=== PATIENT | female | born 1960 | race Caucasian/White ===

== ENCOUNTER 2018-10-01 22:37 | Inpatient (IN) ==
[2018-10-01 23:29] LABS: Basophils # 0.1 K/mcL (0.0-0.2); Basophils % 0.3 %; Eosinophils # 0.1 K/mcL (0.0-0.6); Eosinophils % 0.5 %; Hematocrit 40.4 % (35.3-44.9); Hemoglobin 13.6 g/dL (11.5-15.4); Immature Granulocytes % 0.5 % (0-4); Lymphocytes # 2.1 K/mcL (0.6-4.6); Lymphocytes % 12.2 %; Mean Corpuscular HGB Conc 33.7 g/dL (31.6-35.5); Mean Corpuscular Hemoglobin 31.9 pg (28.0-33.3); Mean Corpuscular Volume 94.6 fL (83.0-100.0); Mean Platelet Volume 9.7 fL (9.4-12.4); Monocytes # 1.5 K/mcL (0.0-1.3); Monocytes % 8.4 %; Neutrophils # 13.7 K/mcL (1.6-8.9); Platelet Count 263 K/mcL (140-400); Red Blood Count 4.27 M/mcL (3.82-4.97); Red Cell Distribution Width 13.2 % (11.5-14.5); Segmented Neutrophils % 78.1 %
[2018-10-01 23:47] LABS: Albumin 3.9 g/dL (3.5-5.7); Albumin/Globulin Ratio 1.6 (1.1-2.2); BUN/Creatinine Ratio 25 (6-26); Bilirubin,Direct 0.1 mg/dL (0.0-0.2); Bilirubin,Indirect 0.3 mg/dL (0.0-1.2); Bilirubin,Total 0.4 mg/dL (0.3-1.0); Blood Urea Nitrogen 15 mg/dL (6-20); Calcium 9.8 mg/dL (8.6-10.3); Carbon Dioxide 31 mEq/L (23-29); Chloride 106 mEq/L (98-107); Globulin 2.5 g/dL (2.4-3.5); Glucose 124 mg/dL (70-105); Osmolality,Calculated 304 (280-300); Potassium 3.8 mEq/L (3.5-5.1); Sodium 146 mEq/L (136-145); Total Protein 6.4 g/dL (6.4-8.9); eGFR For Non-African Americans > 60 (> 60)
[2018-10-01] MEDS ORDERED: Ondansetron 4 MG/2 ML VIAL IVP ONE (23:53)
[2018-10-01] MEDS ORDERED: Ketorolac 15 MG/ML VIAL IVP ONE (23:53)
[2018-10-01 23:55] LABS: Bilirubin,Urine Negative (Negative); Blood,Urine Negative (Negative); Clarity,Urine Turbid (Clear); Color,Urine Yellow (Yellow); Glucose,Urine (UA) Normal (Normal); Ketones,Urine Negative (Negative); Leukocyte Esterase,Urine Negative (Negative); Nitrite,Urine Negative (Negative); PH,Urine 7.5 pH Units (5.0-8.0); Protein,Urine Negative (Neg-Trace); Specific Gravity,Urine 1.008 (1.010-1.025); Urobilinogen,Urine Normal (Normal)
[2018-10-01 23:57] LABS: Bacteria,Urine None Seen per hpf (None-Few); Hyaline Casts,Urine None Seen per lpf (None-Few); Squamous Epithelial Cell,Urine Many per lpf (None-Few); WBC,Urine 0-3 per hpf (0-3)
--- NOTE | 2018-10-02 01:26 | Emergency Department Note ---
Disposition Clinical Impression: Appendicitis Qualifiers: Appendicitis type: acute appendicitis Acute appendicitis type: unspecified acute appendicitis type Qualified Code(s): K35.80 - Unspecified acute appendicitis Disposition: Admitted As Inpatient Condition: Good General Adult HPI - General Chief complaint: ED Nausea/Vomiting/Diarrhea Stated complaint: "Abd Pain/V/N" Time Seen by Provider: 10/01/18 23:46 Source: patient Mode of arrival: private vehicle Limitations: no limitations Nursing Notes Reviewed: Yes Vital Signs Reviewed: Yes - History of Present Illness HPI Narrative: 58-year-old female with the only medical history of a cholecystectomy, hypothyroidism, and a T&A as a child presents emergency department for evaluatio n of right-sided abdominal pain. She states today she flew from [place] and to [place], started having significant epigastric right upper quadrant and normal pain she took some Tums, systolic heart burn really help her, she states she went to work all day at the end of the day they want to go to dinner and all of a sudden she just started feeling bad she states she declined entered because she just felt all of a sudden very tired. She states she went to her hotel room and she laid down where she just started projectile vomiting multiple times, she denies hematemesis, much easier. She states it wishes more what little bit of food she had in her as well as viral. She is unsure if she has had a fevers but she has had "sweats and chills". She states she is just coming off antibiotics for si nusitis, last dose was Saturday as well as she was on prednisone with her last dose Saturday. She denies any other complaints. Onset (ago): hour(s) Location: abdomen Radiation: non-radiation Pain Severity: moderate, severe Pain Scale: 6 Quality: sharp Consistency: constant, Worsening Improves with: nothing Worsens with: nothing Associated symptoms: Reports: loss of appetite, malaise, nausea/vomiting. Denies: confusion, chest pain, cough, diaphoresis, fever/chills, headaches, rash, seizure, shortness of breath, syncope, weakness Treatments Prior to Arrival: none - Related Data Home Medications Medication Instructions Recorded Confirmed Levothyroxine [Synthroid] 125 mcg PO 0630 10/02/18 10/02/18 Allergies Allergy/AdvReac Type Severity Reaction Status Date / Time No Known Allergies Allergy Verified 10/01/18 22:40 All systems ED: reviewed and negative except as stated. Review of Systems: As Per HPI Past Medical History - Past Medical History Attestation: Yes The following information was validated with the patient. Source: patient Medical history: Reports: thyroid disease Psychiatric history: Reports: no psych history - Social History Smoking Status: Current every day smoker Smokeless Tobacco Status: No Alcohol use: Reports: occasionally Drug use: Reports: none Physical Exam - General Limitations: no limitations General appearance: alert, in no apparent distress - Head Head exam: atraumatic, normocephalic, normal inspection - Eye Eye exam: Present: normal appearance - ENT ENT exam: mucous membranes moist - Neck Neck exam: Present: normal inspection, full ROM, trachea midline - Chest Chest inspection: Present: normal inspection, symmetric chest wall rise - Respiratory Respiratory exam: Present: normal lung sounds bilaterally - Cardiovascular Cardiovascular exam: Present: regular rate, normal rhythm, normal heart sounds - Abdominal Exam Abdominal exam: Present: soft, tenderness, guarding, normal bowel sounds, Rovsing's sign. Absent: distention, rebound, rigidity, diminished bowel sounds, organomegaly, Todd's sign Abdominal tenderness: Present: RLQ, severe - Extremities Exam Extremities exam: Present: normal inspection, full ROM. Absent: tenderness, pedal edema - Back Exam Back exam: Present: normal inspection, full ROM. Absent: tenderness - Neurological Exam Neurological exam: Present: alert, oriented X3 - Psychiatric Psychiatric exam: Present: normal affect, normal mood - Skin Skin exam: Present: warm, dry, intact, normal color Course Course Narrative: Nontoxic appearing female moderate amount of stress. She does have her hands guarding her right lower quadrant. The patient discussed right upper quadrant pain, that she is holding her right lower quadrant during examination but she does state she feels like she has a heartburn. Patient is afebrile, normotensive, non-tachycardic upon arrival. Physical exam does reveal positive Rovsing sign, she is right lower quadrant tenderness, it is periumbilical as well, immediate concern for appendicitis versus a nonsurgical abdomen. Labs returned with an elevated white count 17.5 however patient has been on steroids, metabolic panel is within normal limits, a UA without evidence of infection. We did get a CT of the abdomen and pelvis, CT did confirm acute appendicitis with stranding. Physical examination and CT correlate clinically. I did call and speak with the surgeon Dr. Peralta who did come to the emergency department to evaluate patient as he was in the building at the time. We will initiate antibiotics and fluids, plan admission for appendicitis under the care of Dr. Peralta. Results discussed with patient by myself prior to Dr. Peralta examination, verbalized understanding. Dr. Peralta has gone over consent with verbalized understanding and agreement. Attending Dr. Ambrose has also had one-on-one face time with patient and is agreeable to plan of care. Vital Signs Temperature 97.2 F L 10/01/18 22:40 Pulse Rate 61 10/01/18 22:40 Respiratory Rate 16 10/01/18 22:40 Blood Pressure 165/80 10/01/18 22:40 O2 Sat by Pulse Oximetry 95 10/01/18 22:40 Temperature 97.6 F 10/02/18 02:41 Pulse Rate 64 10/02/18 02:41 Respiratory Rate 16 10/02/18 02:41 Blood Pressure 123/70 10/02/18 02:41 O2 Sat by Pulse Oximetry 96 10/02/18 03:32 Oxygen Delivery Oxygen Delivery Room Air Medical Decision Making - Lab Data Result diagrams: 10/01/18 23:14 10/01/18 23:14 Lab Results 10/01/18 10/01/18 10/01/18 Range/Units 23:14 23:14 23:14 WBC 17.5 H (4.3-11.1) K/mcL RBC 4.27 (3.82-4.97) M/mcL Hgb 13.6 (11.5-15.4) g/dL Hct 40.4 (35.3-44.9) % MCV 94.6 (83.0-100.0) fL MCH 31.9 (28.0-33.3) pg MCHC 33.7 (31.6-35.5) g/dL RDW 13.2 (11.5-14.5) % Plt Count 263 (140-400) K/mcL MPV 9.7 (9.4-12.4) fL Immature Gran % 0.5 (0-4) % Seg Neutrophils % 78.1 % Lymphocytes % 12.2 % Monocytes % 8.4 % Eosinophils % 0.5 % Basophils % 0.3 % Neutrophils # 13.7 H (1.6-8.9) K/mcL Lymphocytes # 2.1 (0.6-4.6) K/mcL Monocytes # 1.5 H (0.0-1.3) K/mcL Eosinophils # 0.1 (0.0-0.6) K/mcL Basophils # 0.1 (0.0-0.2) K/mcL Sodium 146 H (136-145) mEq/L Potassium 3.8 (3.5-5.1) mEq/L Chloride 106 (98-107) mEq/L Carbon Dioxide 31 H (23-29) mEq/L BUN 15 (6-20) mg/dL Creatinine 0.60 (0.60-1.20) mg/dL Est GFR ( Amer) > 60 (> 60) Est GFR (Non-Af Amer) > 60 (> 60) BUN/Creatinine Ratio 25 (6-26) Glucose 124 H (70-105) mg/dL Calculated Osmolality 304 H (280-300) Calcium 9.8 (8.6-10.3) mg/dL Total Bilirubin 0.4 (0.3-1.0) mg/dL Direct Bilirubin 0.1 (0.0-0.2) mg/dL Indirect Bilirubin 0.3 (0.0-1.2) mg/dL AST 14 (13-39) Units/L ALT 21 (7-52) Units/L Alkaline Phosphatase 52 (34-104) Units/L Serum Total Protein 6.4 (6.4-8.9) g/dL Albumin 3.9 (3.5-5.7) g/dL Globulin 2.5 (2.4-3.5) g/dL Albumin/Globulin Ratio 1.6 (1.1-2.2) Lipase 8 L (11-82) Units/L Urine Color (Yellow) Urine Clarity (Clear) Urine pH (5.0-8.0) pH Units Ur Specific [place] (1.010-1.025) Urine Protein (Neg-Trace) mg/dL Urine Glucose (UA) (Normal) mg/dL Urine Ketones (Negative) mg/dL Urine Blood (Negative) Urine Nitrite (Negative) Urine Bilirubin (Negative) Urine Urobilinogen (Normal) mg/dL Ur Leukocyte Esterase (Negative) Urine Microscopic RBC (0-3) per hpf Urine Microscopic WBC (0-3) per hpf Ur Squamous Epith Cells (None-Few) per lpf Urine Bacteria (None-Few) per hpf Hyaline Casts (None-Few) per lpf Ur Culture Indicated? (NO) 10/01/18 Range/Units 23:49 WBC (4.3-11.1) K/mcL RBC (3.82-4.97) M/mcL Hgb (11.5-15.4) g/dL Hct (35.3-44.9) % MCV (83.0-100.0) fL MCH (28.0-33.3) pg MCHC (31.6-35.5) g/dL RDW (11.5-14.5) % Plt Count (140-400) K/mcL MPV (9.4-12.4) fL Immature Gran % (0-4) % Seg Neutrophils % % Lymphocytes % % Monocytes % % Eosinophils % % Basophils % % Neutrophils # (1.6-8.9) K/mcL Lymphocytes # (0.6-4.6) K/mcL Monocytes # (0.0-1.3) K/mcL Eosinophils # (0.0-0.6) K/mcL Basophils # (0.0-0.2) K/mcL Sodium (136-145) mEq/L Potassium (3.5-5.1) mEq/L Chloride (98-107) mEq/L Carbon Dioxide (23-29) mEq/L BUN (6-20) mg/dL Creatinine (0.60-1.20) mg/dL Est GFR ( Amer) (> 60) Est GFR (Non-Af Amer) (> 60) BUN/Creatinine Ratio (6-26) Glucose (70-105) mg/dL Calculated Osmolality (280-300) Calcium (8.6-10.3) mg/dL Total Bilirubin (0.3-1.0) mg/dL Direct Bilirubin (0.0-0.2) mg/dL Indirect Bilirubin (0.0-1.2) mg/dL AST (13-39) Units/L ALT (7-52) Units/L Alkaline Phosphatase (34-104) Units/L Serum Total Protein (6.4-8.9) g/dL Albumin (3.5-5.7) g/dL Globulin (2.4-3.5) g/dL Albumin/Globulin Ratio (1.1-2.2) Lipase (11-82) Units/L Urine Color Yellow (Yellow) Urine Clarity Turbid A (Clear) Urine pH 7.5 (5.0-8.0) pH Units Ur Specific [place] 1.008 L (1.010-1.025) Urine Protein Negative (Neg-Trace) mg/dL Urine Glucose (UA) Normal (Normal) mg/dL Urine Ketones Negative (Negative) mg/dL Urine Blood Negative (Negative) Urine Nitrite Negative (Negative) Urine Bilirubin Negative (Negative) Urine Urobilinogen Normal (Normal) mg/dL Ur Leukocyte Esterase Negative (Negative) Urine Microscopic RBC 3-5 H (0-3) per hpf Urine Microscopic WBC 0-3 (0-3) per hpf Ur Squamous Epith Cells Many H (None-Few) per lpf Urine Bacteria None Seen (None-Few) per hpf Hyaline Casts None Seen (None-Few) per lpf Ur Culture Indicated? NO (NO)
[2018-10-02] MEDS ORDERED: Piperacillin/Tazobactam 3.375 GM in 0.9 % Sodium Chloride Mini Bag 100 ML IVPB ONE (01:30)
[2018-10-02] MEDS ORDERED: 0.9 % Sodium Chloride 1,000 ML IVC ONE (01:30)
--- NOTE | 2018-10-02 01:32 | Emergency Department Note ---
Disposition Clinical Impression: Appendicitis Qualifiers: Appendicitis type: acute appendicitis Acute appendicitis type: with localized peritonitis Appendicitis gangrene presence: without gangrene Appendicitis perforation presence: without perforation Appendicitis abscess presence: without abscess Qualified Code(s): K35.30 - Acute appendicitis with localized peritonitis, without perforation or gangrene Disposition: Admitted As Inpatient Condition: Fair Referrals: NONE,PCP [Primary Care Provider] - Forms: ED Satisfaction Letter General Adult HPI - General Chief complaint: ED Nausea/Vomiting/Diarrhea Stated complaint: "Abd Pain/V/N" Time Seen by Provider: 10/01/18 23:46 Source: patient Mode of arrival: private vehicle Limitations: no limitations - History of Present Illness Location: abdomen Pain Scale: 6 - Related Data Allergies Allergy/AdvReac Type Severity Reaction Status Date / Time No Known Allergies Allergy Verified 10/01/18 22:40 Past Medical History - Past Medical History Medical history: Reports: thyroid disease Psychiatric history: Reports: no psych history - Social History Smoking Status: Current every day smoker Smokeless Tobacco Status: No Alcohol use: Reports: occasionally Drug use: Reports: none Physical Exam - General Limitations: no limitations General appearance: alert, in no apparent distress Course Vital Signs Temperature 97.2 F L 10/01/18 22:40 Pulse Rate 61 10/01/18 22:40 Respiratory Rate 16 10/01/18 22:40 Blood Pressure 165/80 10/01/18 22:40 O2 Sat by Pulse Oximetry 95 10/01/18 22:40 Temperature 97.2 F L 10/01/18 22:40 Pulse Rate 83 10/02/18 01:27 Respiratory Rate 20 10/02/18 01:27 Blood Pressure 140/78 10/02/18 01:27 O2 Sat by Pulse Oximetry 98 10/02/18 01:27 Oxygen Delivery Oxygen Delivery Room Air Medical Decision Making - Lab Data Result diagrams: 10/01/18 23:14 10/01/18 23:14 Lab Results 10/01/18 10/01/18 10/01/18 Range/Units 23:14 23:14 23:14 WBC 17.5 H (4.3-11.1) K/mcL RBC 4.27 (3.82-4.97) M/mcL Hgb 13.6 (11.5-15.4) g/dL Hct 40.4 (35.3-44.9) % MCV 94.6 (83.0-100.0) fL MCH 31.9 (28.0-33.3) pg MCHC 33.7 (31.6-35.5) g/dL RDW 13.2 (11.5-14.5) % Plt Count 263 (140-400) K/mcL MPV 9.7 (9.4-12.4) fL Immature Gran % 0.5 (0-4) % Seg Neutrophils % 78.1 % Lymphocytes % 12.2 % Monocytes % 8.4 % Eosinophils % 0.5 % Basophils % 0.3 % Neutrophils # 13.7 H (1.6-8.9) K/mcL Lymphocytes # 2.1 (0.6-4.6) K/mcL Monocytes # 1.5 H (0.0-1.3) K/mcL Eosinophils # 0.1 (0.0-0.6) K/mcL Basophils # 0.1 (0.0-0.2) K/mcL Sodium 146 H (136-145) mEq/L Potassium 3.8 (3.5-5.1) mEq/L Chloride 106 (98-107) mEq/L Carbon Dioxide 31 H (23-29) mEq/L BUN 15 (6-20) mg/dL Creatinine 0.60 (0.60-1.20) mg/dL Est GFR ( Amer) > 60 (> 60) Est GFR (Non-Af Amer) > 60 (> 60) BUN/Creatinine Ratio 25 (6-26) Glucose 124 H (70-105) mg/dL Calculated Osmolality 304 H (280-300) Calcium 9.8 (8.6-10.3) mg/dL Total Bilirubin 0.4 (0.3-1.0) mg/dL Direct Bilirubin 0.1 (0.0-0.2) mg/dL Indirect Bilirubin 0.3 (0.0-1.2) mg/dL AST 14 (13-39) Units/L ALT 21 (7-52) Units/L Alkaline Phosphatase 52 (34-104) Units/L Serum Total Protein 6.4 (6.4-8.9) g/dL Albumin 3.9 (3.5-5.7) g/dL Globulin 2.5 (2.4-3.5) g/dL Albumin/Globulin Ratio 1.6 (1.1-2.2) Lipase 8 L (11-82) Units/L Urine Color (Yellow) Urine Clarity (Clear) Urine pH (5.0-8.0) pH Units Ur Specific [place] (1.010-1.025) Urine Protein (Neg-Trace) mg/dL Urine Glucose (UA) (Normal) mg/dL Urine Ketones (Negative) mg/dL Urine Blood (Negative) Urine Nitrite (Negative) Urine Bilirubin (Negative) Urine Urobilinogen (Normal) mg/dL Ur Leukocyte Esterase (Negative) Urine Microscopic RBC (0-3) per hpf Urine Microscopic WBC (0-3) per hpf Ur Squamous Epith Cells (None-Few) per lpf Urine Bacteria (None-Few) per hpf Hyaline Casts (None-Few) per lpf Ur Culture Indicated? (NO) 10/01/18 Range/Units 23:49 WBC (4.3-11.1) K/mcL RBC (3.82-4.97) M/mcL Hgb (11.5-15.4) g/dL Hct (35.3-44.9) % MCV (83.0-100.0) fL MCH (28.0-33.3) pg MCHC (31.6-35.5) g/dL RDW (11.5-14.5) % Plt Count (140-400) K/mcL MPV (9.4-12.4) fL Immature Gran % (0-4) % Seg Neutrophils % % Lymphocytes % % Monocytes % % Eosinophils % % Basophils % % Neutrophils # (1.6-8.9) K/mcL Lymphocytes # (0.6-4.6) K/mcL Monocytes # (0.0-1.3) K/mcL Eosinophils # (0.0-0.6) K/mcL Basophils # (0.0-0.2) K/mcL Sodium (136-145) mEq/L Potassium (3.5-5.1) mEq/L Chloride (98-107) mEq/L Carbon Dioxide (23-29) mEq/L BUN (6-20) mg/dL Creatinine (0.60-1.20) mg/dL Est GFR ( Amer) (> 60) Est GFR (Non-Af Amer) (> 60) BUN/Creatinine Ratio (6-26) Glucose (70-105) mg/dL Calculated Osmolality (280-300) Calcium (8.6-10.3) mg/dL Total Bilirubin (0.3-1.0) mg/dL Direct Bilirubin (0.0-0.2) mg/dL Indirect Bilirubin (0.0-1.2) mg/dL AST (13-39) Units/L ALT (7-52) Units/L Alkaline Phosphatase (34-104) Units/L Serum Total Protein (6.4-8.9) g/dL Albumin (3.5-5.7) g/dL Globulin (2.4-3.5) g/dL Albumin/Globulin Ratio (1.1-2.2) Lipase (11-82) Units/L Urine Color Yellow (Yellow) Urine Clarity Turbid A (Clear) Urine pH 7.5 (5.0-8.0) pH Units Ur Specific [place] 1.008 L (1.010-1.025) Urine Protein Negative (Neg-Trace) mg/dL Urine Glucose (UA) Normal (Normal) mg/dL Urine Ketones Negative (Negative) mg/dL Urine Blood Negative (Negative) Urine Nitrite Negative (Negative) Urine Bilirubin Negative (Negative) Urine Urobilinogen Normal (Normal) mg/dL Ur Leukocyte Esterase Negative (Negative) Urine Microscopic RBC 3-5 H (0-3) per hpf Urine Microscopic WBC 0-3 (0-3) per hpf Ur Squamous Epith Cells Many H (None-Few) per lpf Urine Bacteria None Seen (None-Few) per hpf Hyaline Casts None Seen (None-Few) per lpf Ur Culture Indicated? NO (NO) Attestation Statement - Attestation Attestation: I have personally performed a face to face evaluation on this patient. I have reviewed and agree with the care plan. History and Exam by me shows: CT confirmed appendicitis in patient with a good history of physical exam to support the diagnosis. Being evaluated by Dr. Peralta now for surgery. Hemodynamically stable at the time of my evaluation.
--- NOTE | 2018-10-02 01:49 | General Surg History&Physical ---
Date of Encounter: 10/02/18 Time of Encounter: 01:47 Assessment and Plan (1) Acute appendicitis Current Visit: Yes Status: Acute 58Fj with acute appendicitis; admit NPO IVF IV abx pain control OR on 10/02 likely with one of my partners The assessment and plan as outlined above was discussed with the patient and/or family members who expressed understanding and agreement. All questions were answered. Qualifiers: Acute appendicitis type: unspecified acute appendicitis type Qualified Code(s): K35.80 - Unspecified acute appendicitis History of Present Illness Chief complaint: RLQ abdominal pain HPI: Ms. Marx is a 58 year old female h/po obesity, thyroid disease who presents after 1 day of worsening abdominal pain. Started in the epigastric region per the patient before migrating to her lower quadrants and settling in the RLQ. No associated fevers, chills, but the patient report anorexia, malaise, and nausea. Pain is rated about 8/10 and described as sharp. Due to the persistence of her pain, she presents for evaluation. A CT scan was obtained, which was reviewed and interpreted by me which revealed findings consistent with acute appendicitis. Past Med Surg Social Fam HX - Past Medical History Medical history: thyroid disease Psychiatric history: no psych history - Past Surgical History Surgical History: cholecystectomy - Social History Smoking Status: Current every day smoker Smokeless Tobacco Status: No Alcohol use: occasionally Drug use: none - Additional Family History Additional family history: non contributory Medications and Allergies Allergy/AdvReac Type Severity Reaction Status Date / Time No Known Allergies Allergy Verified 10/01/18 22:40 Review of Systems All systems PM: 12 point ROS negative besides HPI findings General Surgery Exam Initial Vital Signs Temp Pulse Resp BP Pulse Ox 97.2 F L 61 16 165/80 95 10/01/18 22:40 10/01/18 22:40 10/01/18 22:40 10/01/18 22:40 10/01/18 22:40 - General physical appearance no distress - Eyes normal ocular movement - ENT normocephalic - Neck trachea midline, no lymphadectomy - Respiratory normal expansion, normal respiratory effort - Cardiovascular Cardiovascular exam: Present: RRR - Abdomen Abdomen general surgery: Present: soft, tender Abdominal Tenderness: Present: RLQ, LLQ - Integumentary Integumentary general surgery: Present: warm and dry, no abnormal pigmentation - Neurologic Present: CN 2-12 grossly intact - Musculoskeletal Present: normal posture - Psychiatric Psychiatric general surgery: Present: A&Ox3 Results - Labs 10/01/18 23:14 10/01/18 23:14 Abnormal lab results WBC 17.5 K/mcL (4.3-11.1) H 10/01/18 23:14 Neutrophils # 13.7 K/mcL (1.6-8.9) H 10/01/18 23:14 Monocytes # 1.5 K/mcL (0.0-1.3) H 10/01/18 23:14 Sodium 146 mEq/L (136-145) H 10/01/18 23:14 Carbon Dioxide 31 mEq/L (23-29) H 10/01/18 23:14 Glucose 124 mg/dL (70-105) H 10/01/18 23:14 Calculated Osmolality 304 (280-300) H 10/01/18 23:14 Lipase 8 Units/L (11-82) L 10/01/18 23:14 Urine Clarity Turbid (Clear) A 10/01/18 23:49 Ur Specific [place] 1.008 (1.010-1.025) L 10/01/18 23:49 Urine Microscopic RBC 3-5 per hpf (0-3) H 10/01/18 23:49 Ur Squamous Epith Cells Many per lpf (None-Few) H 10/01/18 23:49 Diabetes panel 10/01/18 10/01/18 Range/Units 23:14 23:14 Sodium 146 H (136-145) mEq/L Potassium 3.8 (3.5-5.1) mEq/L Chloride 106 (98-107) mEq/L Carbon Dioxide 31 H (23-29) mEq/L BUN 15 (6-20) mg/dL Creatinine 0.60 (0.60-1.20) mg/dL Glucose 124 H (70-105) mg/dL Calcium 9.8 (8.6-10.3) mg/dL AST 14 (13-39) Units/L ALT 21 (7-52) Units/L Alkaline Phosphatase 52 (34-104) Units/L Albumin 3.9 (3.5-5.7) g/dL Calcium panel 10/01/18 10/01/18 Range/Units 23:14 23:14 Calcium 9.8 (8.6-10.3) mg/dL Albumin 3.9 (3.5-5.7) g/dL Pituitary panel 10/01/18 Range/Units 23:14 Sodium 146 H (136-145) mEq/L Potassium 3.8 (3.5-5.1) mEq/L Chloride 106 (98-107) mEq/L Carbon Dioxide 31 H (23-29) mEq/L BUN 15 (6-20) mg/dL Creatinine 0.60 (0.60-1.20) mg/dL Glucose 124 H (70-105) mg/dL Calcium 9.8 (8.6-10.3) mg/dL Adrenal panel 10/01/18 10/01/18 Range/Units 23:14 23:14 Sodium 146 H (136-145) mEq/L Potassium 3.8 (3.5-5.1) mEq/L Chloride 106 (98-107) mEq/L Carbon Dioxide 31 H (23-29) mEq/L BUN 15 (6-20) mg/dL Creatinine 0.60 (0.60-1.20) mg/dL Glucose 124 H (70-105) mg/dL Calcium 9.8 (8.6-10.3) mg/dL Total Bilirubin 0.4 (0.3-1.0) mg/dL AST 14 (13-39) Units/L ALT 21 (7-52) Units/L Alkaline Phosphatase 52 (34-104) Units/L Albumin 3.9 (3.5-5.7) g/dL All other labs normal. - Imaging CT scan - abdomen: report reviewed, image reviewed CT scan - pelvis: report reviewed, image reviewed
[2018-10-02] MEDS ORDERED: OXYCODONE Oral CONC 10 MG/0.5 ML ORAL.SYG SL PRN (01:52)
[2018-10-02] MEDS ORDERED: Ondansetron ODT 4 MG TAB.RAPDIS SL PRN ×2 (01:52→18:52)
[2018-10-02] MEDS ORDERED: D5% in 0.45% NACL w KCl 20 MEQ/1,000 ML MLS IVC SCH (02:00)
[2018-10-02] MEDS ORDERED: *HR* Enoxaparin 40 MG/0.4 ML SYRINGE SQ SCH (06:00)
[2018-10-02] MEDS ORDERED: Piperacillin/Tazobactam 3.375 GM in 0.9 % Sodium Chloride Mini Bag 100 ML IVPB SCH (08:00)
--- NOTE | 2018-10-02 08:33 | Event Note ---
Date of Encounter: 10/02/18 Time of Encounter: 08:00 Pt seen on general surgery rounds. She is without new complaint. Pt condition is stable. Pt diagnosis of acute appendicitis is discussed. Laparoscopic Appendectomy is recommended. Procedure for the surgery, risks and benefits are discussed in detail. Possible known complications for Laparoscopic Appendectomy are bleeding, infection, ureteral injury, small intestine or colon injury, bladder injury, stroke, DVT/PE, [place] or . Pt understands these risks, which in this case are low. She wishes to proceed with surgery as soon as possible. Surgery is scheduled. Maintain IV abx and NPO status.
[2018-10-02] MEDS ORDERED: Lidocaine -MPF 2% 2 ML VIAL ONE (15:36)
[2018-10-02] MEDS ORDERED: Lidocaine -MPF 4% 5 ML AMPUL ONE (15:36)
[2018-10-02] MEDS ORDERED: *HR* Succinylcholine 200 MG/10 ML VIAL IVP ONE (15:36)
[2018-10-02] MEDS ORDERED: *HR* Propofol 200 MG/20 ML VIAL IVP ONE (15:36)
[2018-10-02] MEDS ORDERED: *HR* Rocuronium Bromide 50 MG/5 ML VIAL ONE (15:36)
[2018-10-02] MEDS ORDERED: *HR* Midazolam HCl 2 MG/2 ML VIAL ONE (15:36)
--- NOTE | 2018-10-02 15:50 | Operative Note ---
Date of procedure: 10/02/18 Pre-op diagnosis: acute appenditis Post-op diagnosis: same Procedure: Laparoscopic Appendectomy Complications: none Anesthesia: GETA Surgeon: Evens Coon Was there an events and promotions assistant present: Yes Concrete Truck Driver: Alexandria Carnes Estimated blood loss (cc): 15 Specimen: appendix Condition: stable Disposition: PACU Procedure in Detail: This 58-year-old female patient is taken to the operating room and placed in the supine position. Her abdominal wall was prepped and draped in the usual sterile fashion. A 2 cm incision is made in the infraumbilical area. Subcutaneous tissues are dissected down to anterior rectus fascia. The anterior rectus fascia is grasped with a Speedy clamp and stay sutures were placed. The fascia is divided. Posterior rectus fascia and peritoneum were elevated and divided in the same manner. Under direct visualization after the injection of 0.5% Marcaine a 5 mm port is inserted in the suprapubic area. Also under direct visualization after the injection of 0.5% Marcaine a 1012 mm port is inserted in the left lower quadrant. Patient is placed in Trendelenburg position and rotated to her left. The intra-abdominal cavity is explored and an acute appendicitis is visualized with a periappendiceal abscess. The appendix is bluntly dissected off the right pericolic gutter where it is adherent secondary to inflammation. The base of the appendix is identified and a rent is made in the mesoappendix at the base. An Endo MICHAEL stapling device is used to staple across the base of the appendix. Careful dissection of the inflammatory tissues around the appendix is carried out. A white vascular reload was used to staple across the mesoappendix. The appendix is placed in an Endo Catch bag and the appendix is removed from the intra-abdominal cavity through the infraumbilical port. Copious irrigation was carried out in the right pericolic gutter Amin's pouch and the pelvis. The Endo closure device is used to close the left lower quadrant port site fascia with 0 Vicryl sutures. The pneumoperitoneum was allowed to escape. All ports are removed under direct visualization. The fascia at the infraumbilical incision is closed with 0 Vicryl sutures. Skin incisions are closed using 4-0 Monocryl subcuticular stitches. Steri-Strips were placed. Sterile Band-Aids were placed. Patient tolerated procedure well and taken to PACU in good condition. This is a dictation for the operation for polyps increased Marx.
--- NOTE | 2018-10-02 15:52 | Anesthesia Evaluation PreOp ---
Date of Encounter: 10/02/18 Time of Encounter: 15:49 - Past History Planned Operation: appendectomy Cardiac History: HTN (no meds) Pulmonary History: Denies Any Significant HX [employer] History: Denies Any Significant HX Other Medical History: Thyroid (hypo), Other (appendicitis) Anesthesia History: No Prior Anesthetic Complications, Past Anesthesia (T&A, jad) : No Alcohol Use: occasionally Drug use: none Medications and Allergies Levothyroxine [Synthroid] 125 mcg PO 30 10/02/18 [History] Allergy/AdvReac Type Severity Reaction Status Date / Time No Known Allergies Allergy Verified 10/01/18 22:40 - Meds/Allergy Pre-op Review Medications Reviewed: Yes Allergies Reviewed: Yes Beta Blockers on Current Med List: No Anesthesia Results - Labs 10/01/18 23:14 10/01/18 23:14 Anesthesia Exam Vital Signs/O2 Sat/Glucose, Most Recent Temp Pulse Resp BP Pulse Ox 99.6 F 81 17 101/63 94 10/02/18 15:09 10/02/18 15:09 10/02/18 15:09 10/02/18 15:09 10/02/18 15:09 Blood Glucose* 110 - HEENT Pupil (Motor): Pupils equal Mallampati: II Teeth: Missing (lower left) Oral Opening: Greater than 3 - [employer]GER LOC: Oriented [employer] Motor: Normal RUE, Normal LUE, Normal RLE, Normal LLE, Normal Face [employer] Sensory: Normal: RUE, LUE, RLE, LLE, Face - Cardiac Rhythm: Regular Murmur: None - Pulmonary Breath Sounds: bilateral Clear Respiratory Effort: Symmetrical Anesthesia Assess/Plan ASA Score: 2 Level of consciousness: Cooperative, Oriented Anesthetic Plan: General Monitoring Plan: Standard Monitors Recovery Plan: PACU
[2018-10-02] MEDS ORDERED: *HR* Promethazine 25 MG/ML VIAL IVP PRN (15:54)
[2018-10-02] MEDS ORDERED: Ondansetron 4 MG/2 ML VIAL IVP ONE (15:54)
[2018-10-02] MEDS ORDERED: *HR* HYDROmorphone (PF) 1 MG/ML SYRINGE IVP PRN (15:54)
[2018-10-02] MEDS ORDERED: *HR* OxyCODONE Immed Rel 5 MG TABLET PO PRN (15:54)
[2018-10-02] MEDS ORDERED: *HR* FentaNYL (PF) 100 MCG/2 ML VIAL ONE (15:57)
[2018-10-02] MEDS ORDERED: Acetaminophen IV 1,000 MG/100 ML INFUS..BTL ONE (15:57)
[2018-10-02] MEDS ORDERED: Ondansetron 4 MG/2 ML VIAL ONE (16:40)
[2018-10-02] MEDS ORDERED: Neostigmine Methylsulfate 3 MG/3 ML SYRINGE ONE (16:40)
[2018-10-02] MEDS ORDERED: Dexamethasone 4 MG/ML VIAL ONE (16:40)
[2018-10-02] MEDS ORDERED: *HR* PHENYLEPHRINE 1,000 MCG/10 ML SYRINGE IVP ONE (16:45)
--- NOTE | 2018-10-02 18:36 | Anesthesia Evaluation Post Op ---
Date of Encounter: 10/02/18 Time of Encounter: 18:29 - Vital Signs Vital Signs: Vital Signs/O2 Sat, Most Current Temp Pulse Resp BP Pulse Ox 99.4 F 80 16 96/61 92 10/02/18 18:00 10/02/18 18:20 10/02/18 18:20 10/02/18 18:20 10/02/18 18:20 - Lungs Lungs: Clear Ascult./Percussion - Airway Airway: Non-obstructed - Mental Status Mental Status: Alert & Oriented, Answers Appropriately - Pain Pain Scale: 0 Pain Scale used: Numeric (1 - 10) - Nausea Vomiting Nausea Vomiting: Not Present - Hydration Hydration: Ice chips, Has not voided - Discharge PostOp Status: Transfer Patient to floor
[2018-10-02] MEDS ORDERED: *HR* Morphine 2 MG/ML SYRINGE IVP PRN (18:52)
--- NOTE | 2018-10-02 20:43 | Electrocardiograph Report ---
[place] [id number] Test Date: 2018-10-02 Pat Name: Kate Marx Department: EXAM6 Room: 3A43 Gender: F Price Accuracy Supervisor: : [id number] Requested By: Heriberto Peralta Order Number: [id number] Reading MD: Tracy Yuen Measurements Intervals [place] Rate: 76 P: 62 UT: 132 QRS: 46 QRSD: 93 T: 66 QT: 414 QTc: 466 Interpretive Statements Sinus rhythm Electronically Signed On 10-02-2018 20:41:33 EST by Tracy Yuen
[2018-10-02] MEDS: OXYCODONE Oral CONC 10 MG/0.5 ML ORAL.SYG SL PRN (21:02)
[2018-10-03] MEDS ORDERED: Piperacillin/Tazobactam 3.375 GM in 0.9 % Sodium Chloride Mini Bag 100 ML IVPB SCH
[2018-10-03] MEDS: OXYCODONE Oral CONC 10 MG/0.5 ML ORAL.SYG SL PRN ×2 (03:26→07:48)
[2018-10-03] MEDS ORDERED: *HR* Enoxaparin 40 MG/0.4 ML SYRINGE SQ SCH (06:00)
--- NOTE | 2018-10-03 07:19 | Discharge Summary ---
Orders not resulted at time of discharge: Pending orders 10/02/18 17:42 Surgical Pathology [PTH] Routine Date of Encounter: 10/03/18 Time of Encounter: 07:00 - Discharge Diagnosis (1) Appendicitis Priority: Primary Status: Acute Qualifiers: Appendicitis type: acute appendicitis Acute appendicitis type: unspecified acute appendicitis type Qualified Code(s): K35.80 - Unspecified acute appendicitis General Surgery Exam Initial Vital Signs Temp Pulse Resp BP Pulse Ox 97.2 F L 61 16 165/80 95 10/01/18 22:40 10/01/18 22:40 10/01/18 22:40 10/01/18 22:40 10/01/18 22:40 - General physical appearance no distress, no pain - Respiratory clear to auscultation - Cardiovascular Cardiovascular exam: Present: RRR - Abdomen Abdomen general surgery: Present: bowel sounds present - Incision Incision: Present: clean and dry, intact - Hospital Course Hospital course: Ms. Marx is a 58 year old female - Time Spent with Patient Total time spent providing and/or coordinating discharge services: - Discharge Medications Prescriptions: Oxycodone HCl/Acetaminophen [Percocet 5-325 mg Tablet] 1 each PO Q4HR 7 Days #28 tablet Home Medications: RX: Levothyroxine [Synthroid] 125 mcg PO 0630 10/02/18 [History] Oxycodone HCl/Acetaminophen [Percocet 5-325 mg Tablet] 1 each PO Q4HR 7 Days #28 tablet 10/03/18 [Rx] Allergies/Adverse Reactions: Allergy/AdvReac Type Severity Reaction Status Date / Time No Known Allergies Allergy Verified 10/01/18 22:40 Date of admission: 10/02/18 16:09 Primary care physician: PCP in [place] - Impressions ITS Impressions Abdomen/Pelvis CT 10/02/18 23:54 IMPRESSION: Acute appendicitis with a fair amount of surrounding inflammatory stranding although no discrete evidence for perforation on this noncontrast exam. Colonic diverticulosis without evidence of diverticulitis. Hepatic steatosis. D/ / Hank Tolliver / Hank Tolliver Interpreting Provider: Hank Tolliver - Patient Status Disposition: Home, Self-Care Condition: Good - Discharge Instructions Instructions: Laparoscopic Appendectomy (DC) Follow Up With: NONE,PCP [Primary Care Provider] - Forms: Inpatient Work/School Release - Diet and Activity Activity: resume usual activities as tolerated Diet: advance to your usual diet, regular diet
[2018-10-03 07:29] VITALS: BP 133/75
== END 2018-10-03 07:55 | disposition home or self-care (01) | DRG 343 ==
LOC: EMEROOARM 22:37 → 2SOUTHHOLD 22:37 → 3ANU 10-02 15:39
PROVIDERS: ADMIT Surgery; ATTEND Surgery